=== PATIENT | female | born 1965 | race Caucasian/White ===

== ENCOUNTER 2016-09-04 21:52 | Emergency (ER) | payer OTHER ==
[~2016-09-04] VITALS: Ht 162.6 cm; Wt 70.9 kg
[~2016-09-04 21:52] MED LIST: "\\\"MUSCLE RELAXER\\\""; ALPRAZOLAM1 MG PO; AMBIEN CR12.5 MG PO; AMBIEN5 MG G-TUBE; ASPIR-LOW81 MG PO; ATENOLOL25 M1 PO; Ascorbic Acid,Ester- PO; BLOOD PRESSURE MED; CIPROFLOXACIN500 M1 PO; CYMBALTA30 MG PO; CYMBALTA60 MG PO; Colace PO; Cymbalta PO; DESYREL100 MG PO; DILANTIN100 MG PO; DURAGESIC1 EAC1 TD; DURAGESIC100 MCG TD; Duragesic TD; ENDOCET 5-3251 EACH PO; Ecotrin PO; LIPITOR10 MG PO; LIPITOR5 MG PO; Levaquin PO; MUSCLE RELAXER; PERCOCET 10-321 EACH PO; THERAGRAN1 TABLET PO; WELLBUTRIN SR150 MG PO; XANAX0.125 MG NG; XANAX0.5 MG PO; Xanax PO; ZESTRIL,PRINIVI10 MG PO; [UNRECOGNIZED DRUG - OTHER] PO
[2016-09-05] MEDS ORDERED: PROMETHAZINE HC25 M1 PO (00:31)
[2016-09-05 00:42] VITALS: BP 139/99
== END 2016-09-05 00:46 | disposition home or self-care (01) ==
LOC: EME 21:52 → RME 21:52
DX: S20.211A Contusion of right front wall of thorax, initial encounter (principal); S39.012A Strain of muscle, fascia and tendon of lower back, initial encounter; W10.9XXA Fall (on) (from) unspecified stairs and steps, initial encounter; I10 Essential (primary) hypertension; E78.5 Hyperlipidemia, unspecified; Z87.442 Personal history of urinary calculi
CPT/HCPCS: 71020; 72110; 99281; 99284; J2405

== ENCOUNTER 2017-03-15 12:10 | Emergency (ER) | payer SELFPAY ==
[~2017-03-15] VITALS: Ht 162.6 cm; Wt 65.9 kg
[~2017-03-15 12:10] MED LIST changes: +PROMETHAZINE HC25 M1 PO
[2017-03-15] MEDS ORDERED: LIDOCARE1 EACH TP (14:48)
[2017-03-15] MEDS ORDERED: PERCOCET 5/31 TABLET PO (14:48)
[2017-03-15 15:26] VITALS: BP 109/87
== END 2017-03-15 15:27 | disposition home or self-care (01) ==
LOC: EME 12:10
DX: M25.512 Pain in left shoulder (principal); R07.89 Other chest pain; W19.XXXA Unspecified fall, initial encounter; M19.012 Primary osteoarthritis, left shoulder; Z85.42 Personal history of malignant neoplasm of other parts of uterus; Z85.43 Personal history of malignant neoplasm of ovary; Z90.710 Acquired absence of both cervix and uterus
CPT/HCPCS: 73030; 93005

== ENCOUNTER 2017-03-17 19:15 | Emergency (ER) | payer OTHER ==
[~2017-03-17] VITALS: Ht 162.6 cm; Wt 65.6 kg
[~2017-03-17 19:15] MED LIST changes: +LIDOCARE1 EACH TP; +PERCOCET 5/31 TABLET PO
[2017-03-17 21:05] LABS: HEMATOCRIT 40.9 % (36.0-46.0); HEMOGLOBIN 14.2 G/DL (11.9-15.5); MCH 29.1 PG (29.0-34.0); MCHC 34.7 G/DL (30.0-36.0); MCV 83.8 FL (83-99); PLATELET COUNT 202 K/uL (156-360); RBC DIS.WIDTH-CV 13.1 % (11.8-14.6); RBC DIS.WIDTH-SD 40.1 % (39-53); RED BLOOD COUNT 4.88 M/uL (3.80-5.20); WHITE BLOOD COUNT 6.4 K/uL (4.1-10.2)
[2017-03-17 21:14] LABS: CHLORIDE 106 mEq/L (99-109); POTASSIUM 4.2 mEq/L (3.7-5.4); SODIUM 138 mEq/L (136-147)
[2017-03-17 21:16] LABS: GLUCOSE 88 mg/dL (70-99)
[2017-03-17 21:19] LABS: SERUM ETHYL ALCOHOL < 10 mg/dL
[2017-03-17 21:20] LABS: CREATININE 0.8 mg/dL (0.6-1.3); GFR ESTIMATE (CALCULATED) > 59 mL/min/
[2017-03-17 21:21] LABS: UREA NITROGEN (BUN) 11 mg/dL (9-23)
[2017-03-17] MEDS ORDERED: ATIVAN1 MG PO (21:23)
[2017-03-17] MEDS ORDERED: NORCO 5/3251 TABLET PO (21:23)
[2017-03-17 23:34] VITALS: BP 117/94
[2017-03-17 23:52] LABS: AMPHETAMINE NEGATIVE (500 ng/mL); BARBITURATES NEGATIVE (200 ng/mL); BENZODIAZEPINES PRESUMPTIVE POSITIVE (150 ng/mL); BUPRENORPHINE NEGATIVE (10 ng/mL); COCAINE NEGATIVE (150 ng/mL); METHADONE NEGATIVE (200 ng/mL); METHAMPHETAMINE NEGATIVE (500 ng/mL); OPIATES (MORPHINE) PRESUMPTIVE POSITIVE (100 ng/mL); OXYCODONE NEGATIVE (100 ng/mL); PHENCYCLIDINE NEGATIVE (25 ng/mL); PROPOXYPHENE NEGATIVE (300 ng/mL); THC CANNABINOIDS NEGATIVE (50 ng/mL); TRICYCLIC ANTIDEPRESSANTS NEGATIVE (300 ng/mL)
[2017-03-18 01:42] LABS: BENZODIAZEPINES, URINE SCREEN POSITIVE (200 ng/mL)
== END 2017-03-17 23:37 | disposition home or self-care (01) ==
LOC: EME 19:15
PROVIDERS: Emergency Medicine Emergency Medical Services
DX: G43.909 Migraine, unspecified, not intractable, without status migrainosus (principal); F11.23 Opioid dependence with withdrawal; F32.9 Major depressive disorder, single episode, unspecified; F41.9 Anxiety disorder, unspecified; M54.9 Dorsalgia, unspecified; G89.29 Other chronic pain; I10 Essential (primary) hypertension; E78.5 Hyperlipidemia, unspecified; Z87.442 Personal history of urinary calculi; Z87.19 Personal history of other diseases of the digestive system; Z85.42 Personal history of malignant neoplasm of other parts of uterus; Z90.710 Acquired absence of both cervix and uterus; Z90.49 Acquired absence of other specified parts of digestive tract; Z98.1 Arthrodesis status; Z88.6 Allergy status to analgesic agent
CPT/HCPCS: 80048; 84999; 85027; 93005; 99281; 99285; G0480; J0780; J1885; J2270

== ENCOUNTER 2017-03-24 22:53 | Emergency (ER) | payer OTHER ==
[~2017-03-24] VITALS: Ht 162.6 cm; Wt 67.1 kg
[~2017-03-24 22:53] MED LIST changes: +ATIVAN1 MG PO; +NORCO 5/3251 TABLET PO
[2017-03-25 01:39] LABS: BASOPHIL (%) 0.1 % (0-1); EOSINOPHIL (%) 0 % (0-5); HEMATOCRIT 43.2 % (36.0-46.0); HEMOGLOBIN 14.9 G/DL (11.9-15.5); IMMATURE GRANULOCYTE (%) 0.4 % (0.0-0.7); MCH 29.1 PG (29.0-34.0); MCHC 34.5 G/DL (30.0-36.0); MCV 84.4 FL (83-99); MONOCYTE (%) 0.7 % (3-12); MONOCYTE COUNT 0.1 K/uL (0-0.8); NEUTROPHIL (%) 84.8 % (45-76); NEUTROPHIL COUNT 5.8 K/uL (1.8-6.4); PLATELET COUNT 214 K/uL (156-360); RBC DIS.WIDTH-CV 13.1 % (11.8-14.6); RBC DIS.WIDTH-SD 40.7 % (39-53); RED BLOOD COUNT 5.12 M/uL (3.80-5.20); WHITE BLOOD COUNT 6.9 K/uL (4.1-10.2)
[2017-03-25 01:47] LABS: ALBUMIN 4.7 g/dL (3.2-4.8); CHLORIDE 107 mEq/L (99-109); POTASSIUM 4.2 mEq/L (3.7-5.4); SODIUM 139 mEq/L (136-147)
[2017-03-25 01:49] LABS: GLUCOSE 168 mg/dL (70-99); TOTAL PROTEIN 8.4 g/dL (6.4-8.3)
[2017-03-25 01:51] LABS: TOTAL BILIRUBIN 0.9 mg/dL (0.0-1.0)
[2017-03-25 01:53] LABS: ALKALINE PHOSPHATASE 101 IU/L (3-129); GFR ESTIMATE (CALCULATED) > 59 mL/min/
[2017-03-25 01:54] LABS: UREA NITROGEN (BUN) 20 mg/dL (9-23)
[2017-03-25 01:55] LABS: AST (GOT) 31 IU/L (2-34)
[2017-03-25 01:56] LABS: ALT (GPT) 41 IU/L (3-49)
[2017-03-25 01:59] LABS: TROP-I INTERPRETATION NEGATIVE; TROPONIN-I < 0.01 ng/mL (0.0-0.30)
[2017-03-25 02:52] LABS: APPEARANCE CLEAR ((CLEAR)); BILIRUBIN NEGATIVE; BLOOD NEGATIVE; COLOR YELLOW ((YELLOW)); GLUCOSE (STRIP) NEGATIVE; KETONES 5; LEUKOCYTES NEGATIVE; NITRITE NEGATIVE; PROTEIN (STRIP) NEGATIVE; SPECIFIC GRAVITY 1.025 (1.000-1.030); UROBILINOGEN 0.2 MG/DL (0.2-1.0)
[2017-03-25 03:59] VITALS: BP 133/86
== END 2017-03-25 04:00 | disposition left against medical advice (07) ==
LOC: EME 22:53 → EDOF 03-25 03:15 → CANRESERV 03-25 03:16 → ENRESERV 03-25 03:16
PROVIDERS: Emergency Medicine
DX: R51 Headache (principal); I10 Essential (primary) hypertension; E78.5 Hyperlipidemia, unspecified; F41.9 Anxiety disorder, unspecified; F32.9 Major depressive disorder, single episode, unspecified; Z95.828 Presence of other vascular implants and grafts; Z87.19 Personal history of other diseases of the digestive system; Z87.442 Personal history of urinary calculi; Z85.42 Personal history of malignant neoplasm of other parts of uterus; Z85.43 Personal history of malignant neoplasm of ovary; Z98.1 Arthrodesis status; Z88.6 Allergy status to analgesic agent
CPT/HCPCS: 70450; 80053; 81003; 84484; 85025; 93005; 99281; 99285; J0780; J1200; J1885; J2060; J7030

== ENCOUNTER 2017-04-05 13:16 | Emergency (ER) | payer OTHER ==
[~2017-04-05] VITALS: Ht 162.6 cm; Wt 66.9 kg
[2017-04-05 14:00] LABS: APPEARANCE CLEAR ((CLEAR)); BILIRUBIN NEGATIVE; BLOOD NEGATIVE; COLOR YELLOW ((YELLOW)); GLUCOSE (STRIP) NEGATIVE; KETONES NEGATIVE; LEUKOCYTES NEGATIVE; NITRITE NEGATIVE; PROTEIN (STRIP) NEGATIVE; SPECIFIC GRAVITY 1.024 (1.000-1.030); UCUL ADDED? NO; UROBILINOGEN 0.2 MG/DL (0.2-1.0)
[2017-04-05 14:19] LABS: HEMATOCRIT 41.4 % (36.0-46.0); HEMOGLOBIN 14.3 G/DL (11.9-15.5); MCH 29.5 PG (29.0-34.0); MCHC 34.5 G/DL (30.0-36.0); MCV 85.5 FL (83-99); PLATELET COUNT 208 K/uL (156-360); RBC DIS.WIDTH-CV 13.6 % (11.8-14.6); RBC DIS.WIDTH-SD 41.8 % (39-53); RED BLOOD COUNT 4.84 M/uL (3.80-5.20); WHITE BLOOD COUNT 8.9 K/uL (4.1-10.2)
[2017-04-05 14:30] LABS: ALBUMIN 4.1 g/dL (3.2-4.8); CHLORIDE 105 mEq/L (99-109); POTASSIUM 3.6 mEq/L (3.7-5.4); SODIUM 137 mEq/L (136-147)
[2017-04-05 14:32] LABS: GLUCOSE 136 mg/dL (70-99); TOTAL PROTEIN 7.1 g/dL (6.4-8.3)
[2017-04-05 14:34] LABS: TOTAL BILIRUBIN 0.7 mg/dL (0.0-1.0)
[2017-04-05 14:36] LABS: ALKALINE PHOSPHATASE 91 IU/L (3-129); CREATININE 0.8 mg/dL (0.6-1.3); GFR ESTIMATE (CALCULATED) > 59 mL/min/
[2017-04-05 14:37] LABS: UREA NITROGEN (BUN) 14 mg/dL (9-23)
[2017-04-05 14:38] LABS: AST (GOT) 32 IU/L (2-34)
[2017-04-05 14:39] LABS: ALT (GPT) 49 IU/L (3-49)
[2017-04-05 14:45] LABS: QUANTITATIVE HCG < 4.0 MIU/ML
[2017-04-05 16:03] VITALS: BP 125/84
== END 2017-04-05 16:17 | disposition home or self-care (01) ==
LOC: EME 13:16
DX: R19.7 Diarrhea, unspecified (principal); R10.31 Right lower quadrant pain; I10 Essential (primary) hypertension; Z85.41 Personal history of malignant neoplasm of cervix uteri; Z85.3 Personal history of malignant neoplasm of breast; Z85.42 Personal history of malignant neoplasm of other parts of uterus; F32.9 Major depressive disorder, single episode, unspecified; F41.9 Anxiety disorder, unspecified; Z87.19 Personal history of other diseases of the digestive system; Z88.6 Allergy status to analgesic agent
CPT/HCPCS: 74177; 80053; 81003; 84702; 85027; 99281; 99283; J7030

== ENCOUNTER 2017-04-13 09:46 | Emergency (ER) | payer OTHER ==
[~2017-04-13] VITALS: Ht 162.6 cm; Wt 68.8 kg
[2017-04-13 10:50] LABS: BASOPHIL (%) 0.5 % (0-1); EOSINOPHIL (%) 2.4 % (0-5); EOSINOPHIL COUNT 0.1 K/uL (0-0.3); HEMATOCRIT 42.1 % (36.0-46.0); HEMOGLOBIN 14.2 G/DL (11.9-15.5); IMMATURE GRANULOCYTE (%) 0.2 % (0.0-0.7); LYMPHOCYTE (%) 38.7 % (15-42); LYMPHOCYTE COUNT 2.3 K/uL (1.0-2.8); MCH 29.2 PG (29.0-34.0); MCHC 33.7 G/DL (30.0-36.0); MCV 86.6 FL (83-99); MONOCYTE COUNT 0.4 K/uL (0-0.8); NEUTROPHIL (%) 52.2 % (45-76); NEUTROPHIL COUNT 3.1 K/uL (1.8-6.4); PLATELET COUNT 208 K/uL (156-360); RBC DIS.WIDTH-CV 14.2 % (11.8-14.6); RBC DIS.WIDTH-SD 44.8 % (39-53); RED BLOOD COUNT 4.86 M/uL (3.80-5.20); WHITE BLOOD COUNT 5.8 K/uL (4.1-10.2)
[2017-04-13 11:00] LABS: CHLORIDE 106 mEq/L (99-109); POTASSIUM 4.6 mEq/L (3.7-5.4); SODIUM 140 mEq/L (136-147)
[2017-04-13 11:02] LABS: GLUCOSE 105 mg/dL (70-99); TOTAL PROTEIN 6.9 g/dL (6.4-8.3)
[2017-04-13 11:04] LABS: TOTAL BILIRUBIN 0.7 mg/dL (0.0-1.0)
[2017-04-13 11:06] LABS: ALKALINE PHOSPHATASE 88 IU/L (3-129); CREATININE 0.8 mg/dL (0.6-1.3); GFR ESTIMATE (CALCULATED) > 59 mL/min/
[2017-04-13 11:07] LABS: AST (GOT) 28 IU/L (2-34); UREA NITROGEN (BUN) 18 mg/dL (9-23)
[2017-04-13 11:09] LABS: ALT (GPT) 41 IU/L (3-49); LIPASE 10 U/L (1.0-51.0)
[2017-04-13] MEDS ORDERED: TYLENOL WITH C1 EACH PO (12:08)
[2017-04-13] MEDS ORDERED: PROTONIX40 MG PO (12:08)
[2017-04-13] MEDS ORDERED: ZOFRAN4 MG PO (12:08)
[2017-04-13 12:46] VITALS: BP 114/72
== END 2017-04-13 12:47 | disposition home or self-care (01) ==
LOC: EME 09:46
PROVIDERS: Emergency Medicine
DX: R10.11 Right upper quadrant pain (principal); I10 Essential (primary) hypertension; Z87.442 Personal history of urinary calculi; Z87.19 Personal history of other diseases of the digestive system; Z85.42 Personal history of malignant neoplasm of other parts of uterus; Z85.3 Personal history of malignant neoplasm of breast; F32.9 Major depressive disorder, single episode, unspecified; F41.9 Anxiety disorder, unspecified; Z88.6 Allergy status to analgesic agent
CPT/HCPCS: 71045; 80053; 81003; 83690; 85025; 93005; 99281; 99285; J2270; J2405; J7030

== ENCOUNTER 2017-05-09 10:53 | Emergency (ER) | payer OTHER ==
[~2017-05-09] VITALS: Ht 162.6 cm; Wt 69.4 kg
[~2017-05-09 10:53] MED LIST changes: +PROTONIX40 MG PO; +TYLENOL WITH C1 EACH PO; +ZOFRAN4 MG PO
[2017-05-09 12:02] LABS: MCH 29.2 PG (29.0-34.0); MCHC 34.1 G/DL (30.0-36.0); MCV 85.8 FL (83-99); PLATELET COUNT 267 K/uL (156-360); RBC DIS.WIDTH-CV 13.2 % (11.8-14.6); RBC DIS.WIDTH-SD 41.3 % (39-53); RED BLOOD COUNT 5.13 M/uL (3.80-5.20); WHITE BLOOD COUNT 6.6 K/uL (4.1-10.2)
[2017-05-09 12:16] LABS: ALBUMIN 4.4 g/dL (3.2-4.8); CHLORIDE 105 mEq/L (99-109); SODIUM 140 mEq/L (136-147)
[2017-05-09 12:18] LABS: GLUCOSE 112 mg/dL (70-99); TOTAL PROTEIN 7.6 g/dL (6.4-8.3)
[2017-05-09 12:22] LABS: ALKALINE PHOSPHATASE 95 IU/L (3-129); CREATININE 0.9 mg/dL (0.6-1.3); GFR ESTIMATE (CALCULATED) > 59 mL/min/
[2017-05-09 12:23] LABS: UREA NITROGEN (BUN) 16 mg/dL (9-23)
[2017-05-09 12:24] LABS: AST (GOT) 27 IU/L (2-34)
[2017-05-09 12:25] LABS: ALT (GPT) 29 IU/L (3-49)
[2017-05-09 12:31] LABS: QUANTITATIVE HCG < 4.0 MIU/ML
[2017-05-09 12:34] LABS: APPEARANCE CLEAR ((CLEAR)); BILIRUBIN NEGATIVE; BLOOD NEGATIVE; COLOR YELLOW ((YELLOW)); GLUCOSE (STRIP) NEGATIVE; KETONES NEGATIVE; LEUKOCYTES NEGATIVE; NITRITE NEGATIVE; PROTEIN (STRIP) NEGATIVE; SPECIFIC GRAVITY 1.021 (1.000-1.030); UCUL ADDED? NO; UROBILINOGEN 0.2 MG/DL (0.2-1.0)
[2017-05-09 12:52] LABS: LIPASE 4 U/L (1.0-51.0)
[2017-05-09] MEDS ORDERED: PERCOCET 5/31 TABLET PO (15:19)
[2017-05-09] MEDS ORDERED: ZOFRAN4 MG PO (15:19)
[2017-05-09 16:05] VITALS: BP 122/86
== END 2017-05-09 16:08 | disposition home or self-care (01) ==
LOC: EME 10:53
DX: R10.11 Right upper quadrant pain (principal); Z87.442 Personal history of urinary calculi; Z87.19 Personal history of other diseases of the digestive system; Z85.41 Personal history of malignant neoplasm of cervix uteri; Z85.42 Personal history of malignant neoplasm of other parts of uterus; F32.9 Major depressive disorder, single episode, unspecified; F41.9 Anxiety disorder, unspecified
CPT/HCPCS: 76705; 80053; 81003; 83690; 84702; 85027; 99281; 99285; J1885; J2270; J2405; J7030

== ENCOUNTER → 2017-05-13 | Outpatient (CLI) | payer OTHER | END | disposition home or self-care (01) | LOC: EEG 09:15 | DX: R26.9 Unspecified abnormalities of gait and mobility (principal) | CPT/HCPCS: 95954 ==

== ENCOUNTER → 2017-06-07 | Outpatient (CLI) | payer OTHER ==
[2017-06-07 16:19] LABS: CSF PROTEIN 40 mg/dL (15-45)
[2017-06-07 16:24] LABS: GLUCOSE, CSF 65 mg/dL (40-80)
[2017-06-07 16:48] LABS: APPEARANCE CLEAR/COLORLESS; CSF TUBE NUMBER TUBE #1; RED CELL COUNT 22 /MM^3 (0-1); WHITE CELL COUNT 1 /MM^3 (0-5)
[2017-06-07 18:12] LABS: CSF EOSINOPHILS 0 % (0-25); MONONUCLEAR WBC'S 100 % (50-90); POLYNUCLEAR WBC'S 0 % (0-3)
[2017-06-07 18:14] LABS: SPINAL FLD COMMENT 2 SLIDES = 4 MONOS
[2017-06-07 19:32] LABS: APPEARANCE (RECHECK) CLEAR/COLORLESS; CSF TUBE NUMBER (RECHECK) TUBE #3; RED CELL COUNT (RECHECK) 0 /MM^3 (0-1)
== END | disposition home or self-care (01) ==
LOC: RAD 14:30
PROVIDERS: Psychiatry & Neurology Clinical Neurophysiology
PROC: 009U3ZZ Drainage of Spinal Canal, Percutaneous Approach (ICD-10-PCS; principal; 2017-06-07)
DX: G37.9 Demyelinating disease of central nervous system, unspecified (principal); B99.9 Unspecified infectious disease
CPT/HCPCS: 62270; 77003; 82945; 83873 90; 83916 90; 84157; 86617 90; 86618 90; 87070; 87205; 89051

== ENCOUNTER 2017-08-19 03:16 | Emergency (ER) | payer OTHER ==
[~2017-08-19] VITALS: Ht 162.6 cm; Wt 72.4 kg
[2017-08-19] MEDS ORDERED: FLEXERIL10 MG PO (05:14)
[2017-08-19] MEDS ORDERED: NAPROSYN500 MG PO (05:14)
[2017-08-19 05:20] VITALS: BP 117/69
== END 2017-08-19 05:20 | disposition home or self-care (01) ==
LOC: EME 03:16
DX: M25.561 Pain in right knee (principal); M54.5 Low back pain; M25.512 Pain in left shoulder; M25.552 Pain in left hip; M54.2 Cervicalgia; W18.39XA Other fall on same level, initial encounter; Z85.41 Personal history of malignant neoplasm of cervix uteri; Z85.42 Personal history of malignant neoplasm of other parts of uterus; Z98.1 Arthrodesis status; Z90.710 Acquired absence of both cervix and uterus; M85.812 Other specified disorders of bone density and structure, left shoulder; M85.88 Other specified disorders of bone density and structure, other site; M85.861 Other specified disorders of bone density and structure, right lower leg
CPT/HCPCS: 70450; 72125; 72131; 73030; 73564; 74176; 99281; 99283

== ENCOUNTER 2017-09-02 17:11 | Emergency (ER) | payer OTHER ==
[~2017-09-02] VITALS: Ht 162.6 cm; Wt 72.3 kg
[~2017-09-02 17:11] MED LIST changes: +FLEXERIL10 MG PO; +NAPROSYN500 MG PO
[2017-09-02] MEDS ORDERED: FLEXERIL10 MG PO (21:06)
[2017-09-02] MEDS ORDERED: PERCOCET 5/31 TABLET PO (21:06)
[2017-09-02] MEDS ORDERED: MOTRIN600 MG PO (21:06)
[2017-09-02 21:32] VITALS: BP 121/88
== END 2017-09-02 21:32 | disposition home or self-care (01) ==
LOC: EME 17:11
DX: S13.9XXA Sprain of joints and ligaments of unspecified parts of neck, initial encounter (principal); V43.52XA Car driver injured in collision with other type car in traffic accident, initial encounter; Y92.410 Unspecified street and highway as the place of occurrence of the external cause; Z88.6 Allergy status to analgesic agent
CPT/HCPCS: 71046; 72125; 93005; 99281; 99285; J3010